=== PATIENT | male | born 1940 | race Caucasian/White ===

== ENCOUNTER 2017-11-21 05:58 | Inpatient (IN) | payer MEDICARE ==
[~2017-11-21] VITALS: Ht 195.6 cm; Wt 115.3 kg
[2017-11-21] VITALS (12 sets, daily range): BP systolic 132–162; BP diastolic 72–99; PULSE 52–82; RESP 16–20; TEMP 97.5–99.3; O2SAT 94–98
[2017-11-21] MEDS ORDERED: SODIUM CHLOR 0.9% 1000 ML INJ 1,000 ML IV ONE (06:03)
--- NOTE | 2017-11-21 06:15 | PD ---
HPI Chief Complaint: Stroke Alert Time Seen by Provider: 06:03 Travel History International Travel<30 days: No Contact w/Intl Traveler<30days: No Traveled to known affect area: No History of Present Illness HPI The patient is a 77 year old male who presents to the [facility] emergency department with a history of difficulty speaking that he first noticed at 1 AM. The patient reports that he lives at home alone. He reports that he felt uneasy throughout the entire night. He reports that he has been doing crosswords and attempting to speak to see if the symptoms will resolve. When they did not resolve he called ambulance services. The patient was brought in as a stroke alert. The patient arrives approximately 5 hours after the onset of symptoms. The patient reports that he has had a stroke in the past, one year ago. He reports that his symptoms completely resolved. He reports that he is on low-dose aspirin daily which he last took yesterday morning. He denies having any history of irregular heartbeat. On review of systems otherwise, the patient denies having any known recent fevers, cough, congestion , neck pain, chest pain, shortness of breath, abdominal pain, vomiting, diarrhea , urinary symptoms, one-sided weakness, vision changes, facial droop, or numbness or tingling to his extremities. The patient was brought in by ambulance services. The patient's blood sugar was noted to be 92 prior to arrival. The patient's pupils were reportedly unequal, however the patient reports having a history of this since childhood. [facility] Past Medical History Narrative Medical The patient's past medical history is significant for a prior cerebrovascular accident without any residual deficits, history of arthritis, depression, anxiety, hyperlipidemia, history of unequal pupils since childhood. Diminished Hearing: No Past Surgical History Narrative Surgical The patient's past surgical history is unremarkable. Social History Alcohol Use: No Tobacco Use: No Substance Use: No Allergies-Medications (Allergen,Severity, Reaction): Coded Allergies: bee venom protein (honey bee) (Verified Allergy, Unknown, 11/21/17) Reported Meds & Prescriptions Reported Meds & Active Scripts Active Reported Aspirin 81 Mg Chew 81 Mg CHEW DAILY Ativan (Lorazepam) 0.5 Mg Tab 0.5 Mg PO Q8H PRN Zoloft (Sertraline HCl) 50 Mg Tab 50 Mg PO DAILY Simvastatin 20 Mg Tab 20 Mg PO DAILY Buspirone (Buspirone HCl) 5 Mg Tab 5 Mg PO DAILY Gabapentin 800 Mg Tab 1,600 Mg PO HS Review of Systems Except as stated in HPI: all other systems reviewed are Neg General / Constitutional: No: Fever Eyes: No: Visual changes HENT: No: Headaches Cardiovascular: No: Chest Pain or Discomfort Respiratory: No: Shortness of Breath Gastrointestinal: No: Abdominal Pain Genitourinary: No: Dysuria Musculoskeletal: No: Pain Skin: No Rash Neurologic: Positive: Other (Difficulty with word finding ability), No: Weakness, Focal Abnormalities, Change in Mentation, Slurred Speech, Sensory Disturbance Psychiatric: No: Depression Endocrine: No: Polydipsia Hematologic/Lymphatic: No: Easy Bruising Physical Exam Narrative General: The patient is a well-developed well-nourished male in no acute distress. Head and Neck exam: Head is normocephalic atraumatic. Eyes: EOMI, pupils are equal on examination, left pupil larger than the right. The patient reports having a history of this since childhood. Nose: Midline septum with pink mucous membranes Mouth: Dentition unremarkable. Moist mucus membranes. Posterior oropharynx is not erythematous. No tonsillar hypertrophy. Uvula midline. Airway patent. Neck: No palpable lymphadenopathy. No nuchal rigidity. No thyromegaly. Cardiovascular: Regular rate and rhythm without murmurs, gallops, or rubs. No pulse deficit to the extremities on simultaneous auscultation and palpation of his radial artery. Lungs: Clear to auscultation bilaterally. No wheezes, rhonchi, or rales. Abdomen: Soft, without tenderness to palpation in all 4 quadrants of the abdomen. No guarding, rebound, or rigidity. Normal bowel sounds are audible. No tenderness on palpation of McBurney's point. Negative Mendoza sign. Extremities: No clubbing, cyanosis, or edema. 2+ pulses in all 4 extremities. No calf tenderness on palpation. Back: No spinous process tenderness to palpation. No costovertebral angle tenderness to palpation. Neurologic Exam: Cranial nerves 2-12 were intact on exam. Strength is 5/5 in all 4 extremities. No sensory deficits noted. No dysdiadochokinesis. Good finger to nose and Heel to guzman bilaterally. The patient has a mild aphasia with some difficulty with word finding ability regarding his history, however otherwise he is able to name various objects around the room. NIH score is 1. Skin Exam: No rash noted. Intact skin that is warm and dry. Data Data Last Documented VS Vital Signs Date Time Temp Pulse Resp B/P (MAP) Pulse Ox O2 Delivery O2 Flow Rate FiO2 11/21/17 06:31 98 Nasal Cannula 2.00 11/21/17 06:30 59 16 Orders Orders Activity Bed Rest (11/21/17 ) Electrocardiogram (11/21/17 ) I-Stat Profile (11/21/17 06:03) Prothrombin Time / Inr (Pt) (11/21/17 06:03) Act Partial Throm Time (Ptt) (11/21/17 06:03) Complete Blood Count With Diff (11/21/17 06:03) Fibrinogen (11/21/17 06:03) Creatine Kinase (Cpk) (11/21/17 06:03) Troponin I (11/21/17 06:03) Ua Includes Microscopic (11/21/17 06:03) Drug Screen, Random Urine (11/21/17 06:03) Type And Screen (11/21/17 06:03) Ct Brain W/O Iv Contrast(Rout) (11/21/17 ) Cta Brain W Iv Contrast W 3d (11/21/17 06:03) Cta Neck W Iv Contrast W 3d (11/21/17 06:03) Consult Neurology (11/21/17 ) Blood Glucose (11/21/17 06:03) Ecg Monitoring (11/21/17 06:03) Neuro Checks Q2HX12,Q4H (11/21/17 06:03) Nursing Bedside Swallow Assess .ONCE (11/21/17 06:03) Iv Access Insert/Monitor (11/21/17 06:03) NPO (11/21/17 06:03) Oximetry (11/21/17 06:03) Resp Oxygen Nc Stroke (11/21/17 ) Cath For Specimen (11/21/17 06:03) Sodium Chlor 0.9% 1000 Ml Inj (Ns 1000 M (11/21/17 06:03) (Hub Use Only)Inp Phy Cons/Ref (11/21/17 ) Iohexol 350 Inj (Omnipaque 350 Inj) (11/21/17 06:22) Aspirin Chew (Aspirin Chew) (11/21/17 06:45) CKMB (11/21/17 06:00) CKMB% (11/21/17 06:00) Admit Order (Ed Use Only) (11/21/17 06:52) Labs Laboratory Tests Test 11/21/17 06:00 11/21/17 06:10 11/21/17 06:40 Bedside Hemoglobin 13.6 G/DL Bedside Hematocrit 40.0 % Bedside Sodium 139 MMOL/L Bedside Potassium 4.8 MMOL/L Bedside Chloride 105 MMOL/L Bedside Blood Urea Nitrogen 16 MG/DL Bedside Creatinine 1.1 MG/DL Bedside Glucose 89 MG/DL Total Creatine Kinase 382 U/L Creatine Kinase MB 5.3 NG/ML Creatine Kinase MB % 1.4 % Troponin I LESS THAN 0.02 NG/ML Urine Color YELLOW Urine Turbidity CLEAR Urine pH 5.5 Urine Specific [place] 1.018 Urine Protein NEG mg/dL Urine Glucose (UA) NEG mg/dL Urine Ketones NEG mg/dL Urine Occult Blood NEG Urine Nitrite NEG Urine Bilirubin NEG Urine Urobilinogen LESS THAN 2.0 MG/DL Urine Leukocyte Esterase NEG Urine RBC 1 /hpf Urine WBC 1 /hpf Urine Hyaline Casts 4 /lpf Urine Mucus FEW /lpf Urine Opiates Screen NEG Urine Barbiturates Screen NEG Urine Amphetamines Screen NEG Urine Benzodiazepines Screen NEG Urine Cocaine Screen NEG Urine Cannabinoids Screen NEG White Blood Count 10.8 TH/MM3 Red Blood Count 3.76 MIL/MM3 Hemoglobin 12.3 GM/DL Hematocrit 35.8 % Mean Corpuscular Volume 95.3 FL Mean Corpuscular Hemoglobin 32.8 PG Mean Corpuscular Hemoglobin Concent 34.4 % Red Cell Distribution Width 13.9 % Platelet Count 247 TH/MM3 Mean Platelet Volume 8.2 FL Neutrophils (%) (Auto) 49.6 % Lymphocytes (%) (Auto) 30.3 % Monocytes (%) (Auto) 13.6 % Eosinophils (%) (Auto) 6.0 % Basophils (%) (Auto) 0.5 % Neutrophils # (Auto) 5.4 TH/MM3 Lymphocytes # (Auto) 3.3 TH/MM3 Monocytes # (Auto) 1.5 TH/MM3 Eosinophils # (Auto) 0.6 TH/MM3 Basophils # (Auto) 0.1 TH/MM3 CBC Comment DIFF FINAL Differential Comment Prothrombin Time 10.6 SEC Prothromb Time International Ratio 1.0 RATIO Activated Partial Thromboplast Time 24.3 SEC Fibrinogen 246 mg/dL Hemoglobin A1c 5.6 % MDM Medical Screen Exam Complete: Yes Emergency Medical Condition: Yes Medical Record Reviewed: Yes Differential Diagnosis Ischemic stroke, versus intracranial mass, versus encephalopathy, versus intracranial hemorrhage Narrative Course During the course of the patient's emergency department visit, the patient's history, examination, and differential diagnosis were reviewed with the patient. The patient was placed on a card grader with oximetry and frequent blood pressure monitoring. The patient had IV access obtained and blood work sent for analysis. A stroke alert was called on the patient prior to arrival. An i-STAT with creatinine was done on the patient. The patient was transported to CT after initial evaluation by me. Dr. Harmon the neurologist was called regarding this patient. The patient due to the time of onset his symptoms and his arrival time in the emergency department is not a candidate for TPA. He did recommend proceeding with CTA of the head and neck. EKG done on this patient on arrival back from CT shows a sinus rhythm, T waves are inverted in lead III, V1, no acute ST segment elevation. Wavy baseline which could in fact interpretation. The patient was initially provided normal saline at 70 mL/h. The patient was placed with the head of the bed flat. The patient's laboratory studies were reviewed and remarkable for a white count of 10.8, hemoglobin 12.3, platelets 247 with 13.6 monocytes, i-STAT with creatinine was unremarkable, creatinine 1.1, CPK 382 with an MB percent of 1.4, troponin I less than 0.02, fibrinogen 246, PT PTT within normal limits, urine drug screen is negative. Urinalysis is unremarkable. Radiology studies were reviewed and remarkable for a CT scan of the brain that shows apparent old areas of infarction involving the right cerebellar hemisphere , no acute hemorrhage or mass-effect. CTA of the neck shows bilateral calcific plaquing in the carotid bulbs right greater than the left with approximate 50% luminal narrowing on the right and less than 30% on the left. CTA of the brain shows an unremarkable examination. The patient's results were discussed with the patient, including the plan of care. I explained that further testing and/ or monitoring is indicated based on the patient's history, examination, and/ or laboratory findings. Therefore, I recommended admission for additional evaluation. The patient expressed understanding and was agreeable with this plan. The patient was admitted to the hospital in guarded condition and sent to a bed under the care of the [facility] service Critical Care Narrative Aggregate critical care time was 36 minutes. Time to perform other separately billable procedures was not included in the critical care time. My time did not include minutes spent treating any other patients simultaneously or on activities that did not directly contribute to the patient's treatment. The services I provided to this patient were to treat and/or prevent clinically significant deterioration that could result in: Progression of neurologic symptoms I provided critical care services requiring my management, as noted below: Chart data review, documentation time, medication orders and management, vital sign assessments/reviewing monitor data, ordering and reviewing lab tests, ordering and interpreting/reviewing x-rays and diagnostic studies, care of the patient and discussion of the patient with the admitting physicians. Stroke Alert NIHSS NIH Stroke Scale Result: 1 NIHSS Time Completed: 06:10 Physician Communication Physician Communication The patient's case including history, pertinent physical examination findings, and laboratory studies were discussed with Dr. Harmon. He recommends proceeding with CTA of the head and neck. The patient is 5 hours and 10 minutes out since onset of symptoms, therefore the patient does not meet criteria for TPA administration, however if he does have a blood clot that could be retrieved by interventional radiology he would meet the timeframe for this intervention to be done. After further discussion with Dr. Harmon, no significant blood clot for retrieval was identified on additional imaging. He agreed with the plan for the patient to receive aspirin and full dose p.o. The patient's case was discussed with Dr. Pinzon who did agree to admit the patient for further evaluation and treatment at this time. Diagnosis Diagnosis: Primary Impression: Expressive aphasia Additional Impression: Ischemic stroke Admitting Physician Requests: Rebekah Chowdhury MD Nov 21, 2017 06:15
--- NOTE | 2017-11-21 06:19 | RADRPT ---
EXAM DATE/TIME: 11/21/2017 06:07 [facility] COMPARISON: No previous studies available for comparison. INDICATIONS : Stroke Alert. Slurred speech. RADIATION DOSE: 39.88 CTDIvol (mGy) This report was called by Dr. Garcia to Dr. Puri at 0614 hours. MEDICAL HISTORY : Cerebrovascular disease. SURGICAL HISTORY : None. ENCOUNTER: Initial ACUITY: 1 day PAIN SCALE: 0/10 LOCATION: cranial TECHNIQUE: Multiple contiguous axial images were obtained of the head. Using automated exposure control and adj ustment of the mA and/or kV according to patient size, radiation dose was kept as low as reasonably a chievable to obtain optimal diagnostic quality images. DICOM format image data is available electro nically for review and comparison. FINDINGS: CEREBRUM: The ventricles are normal for age with diffuse mild to moderate atrophic change. No evidence of midli ne shift, mass lesion, hemorrhage or acute infarction. No extra-axial fluid collections are seen. POSTERIOR FOSSA: There are low-attenuation areas in the right cerebellar hemisphere with no mass effect. The 4th ventr icle is midline. The cerebellopontine angle is unremarkable. EXTRACRANIAL: The visualized portion of the orbits is intact. SKULL: The calvaria is intact. No evidence of skull fracture. CONCLUSION: 1. Apparent old areas of infarction involving the right cerebellar hemisphere. 2. No acute hemorrhage or mass effect. Paulie Garcia MD on November 21, 2017 at 6:12 Board Certified Radiologist. This report was verified electronically.
[2017-11-21] MEDS ORDERED: IOHEXOL 350 MG/ML 10 ML VIAL (for RAD DIAG) IVCONTRAST ONE (06:22)
--- NOTE | 2017-11-21 06:33 | RADRPT ---
EXAM DATE/TIME: 11/21/2017 06:07 [facility] COMPARISON: No previous studies available for comparison. INDICATIONS : Stroke Alert. Slurred speech. IV CONTRAST: 100 cc Omnipaque 350 (iohexol) IV ; Cumulative dose for multiple exams. RADIATION DOSE: 16.15 CTDIvol (mGy) ; Combined studies MEDICAL HISTORY : Cerebrovascular disease. SURGICAL HISTORY : None. ENCOUNTER: Initial ACUITY: 1 day PAIN SCALE: 0/10 LOCATION: cranial TECHNIQUE: Volumetric scanning was performed using a multi-row detector CT scanner. The data was post processed with a variety of visualization algorithms including full volume maximum intensity projection, multi -planar sliding thin slab reformation, curved planar reformation, and surface rendering techniques. Using automated exposure control and adjustment of the mA and/or kV according to patient size, radiat ion dose was kept as low as reasonably achievable to obtain optimal diagnostic quality images. DICO M format image data is available electronically for review and comparison. FINDINGS: There is excellent visualization of the major intracranial arteries out to the second-order branch ve ssels. There is no evidence for aneurysm, vessel truncation or stenosis, and no evidence for vascula r malformation. CONCLUSION: Unremarkable exam. Paulie Garcia MD on November 21, 2017 at 6:27 Board Certified Radiologist. This report was verified electronically.
[2017-11-21] MEDS ORDERED: GABA800T PO (06:34)
[2017-11-21] MEDS ORDERED: LORA-392 PO (06:40)
[2017-11-21] MEDS ORDERED: BUSP5TAB PO (06:40)
[2017-11-21] MEDS ORDERED: SIMV20TA PO (06:40)
[2017-11-21] MEDS ORDERED: ZOLO50TA PO (06:40)
[2017-11-21] MEDS ORDERED: ASPI-516 CHEW (06:41)
[2017-11-21] MEDS ORDERED: ASPIRIN 81 MG CHEW TAB CHEW ONE (06:45)
[2017-11-21 06:46] LABS: TROPONIN I LESS THAN 0.02 NG/ML (0.02-0.05)
--- NOTE | 2017-11-21 06:47 | RADRPT ---
EXAM DATE/TIME: 11/21/2017 06:07 [facility] COMPARISON: CTA BRAIN W 3D RECON, November 21, 2017, 6:07. INDICATIONS : Stroke Alert. Slurred speech. IV CONTRAST: 100 cc Omnipaque 350 (iohexol) IV ; Cumulative dose for multiple exams. RADIATION DOSE: 61.15 CTDIvol (mGy) ; Combined studies MEDICAL HISTORY : Cerebrovascular disease. SURGICAL HISTORY : None. ENCOUNTER: Initial ACUITY: 1 day PAIN SCALE: 0/10 LOCATION: Perianal Elevated flow velocities and ICA/CCA ratios have been found to correlate with increased degrees of vessel stenosis, calculated as percentage of diameter relative to a normal segment of distal ICA/CCA. TECHNIQUE: Volumetric scanning was performed using a multirow detector CT scanner. The data was post processed with a variety of visualization algorithms including full-volume maximum intensity projection, multip lanar sliding thin-slab reformation, curved-planar reformation, and surface-rendering techniques. Us ing automated exposure control and adjustment of the mA and/or kV according to patient size, radiatio n dose was kept as low as reasonably achievable to obtain optimal diagnostic quality images. DICOM f ormat image data is available electronically for review and comparison. FINDINGS: AORTIC ARCH: There is a three-vessel origin of the great vessels from the aorta. No evidence of ostial narrowing. RIGHT CAROTID: The common carotid artery is intact with mild plaque. There is moderate calcific plaquing in the gallagher tid bulb with approximately 50% luminal narrowing. The internal carotid artery lumen is smooth withou t stenosis. The external carotid artery is intact. LEFT CAROTID: The common carotid artery is intact. There is mild plaquing in the carotid bulb with less than 30% di ameter stenosis. The internal carotid artery lumen is smooth without stenosis. The external carotid artery is intact. VERTEBRALS: The vertebral arteries have a symmetric diameter. No stenotic lesions are seen. CONCLUSION: Bilateral calcific plaquing in the carotid bulbs right greater than left with approximate 50% luminal narrowing on the right less than 30% on the left. Paulie Garcia MD on November 21, 2017 at 6:39 Board Certified Radiologist. This report was verified electronically.
[2017-11-21] MEDS ORDERED: SODIUM CHLORIDE 0.9% FLUSH 10 ML FLUSH IV FLUSH PRN ×2 (07:00→08:45)
[2017-11-21] MEDS ORDERED: GLUCAGON 1 MG/ML VIAL OTHER PRN ×2 (07:00→08:45)
[2017-11-21] MEDS ORDERED: DEXTROSE 50% IN WATER 50 ML VIAL(D50) IV PUSH PRN ×2 (07:00→08:45)
[2017-11-21 07:05] LABS: AUTOMATED NEUTROPHIL # 5.4 TH/MM3 (1.8-7.7); BASOPHIL # 0.1 TH/MM3 (0-0.2); BASOPHIL % 0.5 % (0.0-2.0); EOSINOPHIL # 0.6 TH/MM3 (0-0.4); HEMATOCRIT 35.8 % (39.0-51.0); HEMOGLOBIN 12.3 GM/DL (13.0-17.0); LYMPH % 30.3 % (9.0-44.0); LYMPHOCYTE # 3.3 TH/MM3 (1.0-4.8); MEAN CELL VOLUME 95.3 FL (80.0-100.0); MEAN CORPUSCULAR HEMOGLOBIN 32.8 PG (27.0-34.0); MEAN CORPUSCULAR HGB CONC 34.4 % (32.0-36.0); MEAN PLATELET VOLUME 8.2 FL (7.0-11.0); MONO % 13.6 % (0.0-8.0); MONOCYTE # 1.5 TH/MM3 (0-0.9); NEUT % 49.6 % (16.0-70.0); PLATELET COUNT 247 TH/MM3 (150-450); RED BLOOD COUNT 3.76 MIL/MM3 (4.50-5.90); RED CELL DISTRIBUTION WIDTH 13.9 % (11.6-17.2); WHITE BLOOD COUNT 10.8 TH/MM3 (4.0-11.0)
[2017-11-21 07:12] LABS: PROTHROMBIN TIME - PATIENT 10.6 SEC (9.8-11.6)
[2017-11-21 07:16] LABS: BILIRUBIN, URINE NEG (NEG); BLOOD, URINE NEG (NEG); GLUCOSE,URINE NEG (NEG); HYALINE CAST, URINE 4 /lpf (RARE); KETONE, URINE NEG (NEG); MUCUS URINE FEW /lpf (OCC); NITRITE,URINE NEG (NEG); PH, URINE 5.5 (5.0-8.5); URINE COLOR YELLOW (YELLW/STRAW); URINE LEUKOCYTE ESTERASE NEG (NEG)
[2017-11-21] MEDS ORDERED: SODIUM CHLOR 0.9% 1000 ML INJ 1,000 ML IV SCH (08:00)
[2017-11-21] MEDS ORDERED: INSULIN ASPART SUPPLEMENTAL SCALE SQ SCH (08:00)
[2017-11-21] MEDS: HEPARIN SODIUM - SQ 10,000 UNITS/ML VIAL SQ SCH ×2 (08:44→21:32)
--- NOTE | 2017-11-21 08:58 | MB ---
cc: BRETT DE SANTIAGO M.D., TARA D. M.D. DATE OF CONSULTATION 11/21/2017 REASON FOR CONSULTATION Stroke Alert. HISTORY OF PRESENT ILLNESS Mr. Reza is a 77-year-old man who has a history of previous stroke about a year ago. He was in his usual state of health until 1:00 a.m. this morning when he suddenly had difficulty speaking, difficulty getting words out. He felt uneasy the whole night. He was awake and these symptoms happened and did not wake up with the symptoms. He tried to do crossword puzzles to see if his symptoms would resolve. They did not resolve so he called 911 and a Stroke Alert was called. The patient arrived in the ER 5 hours after the onset of symptoms. At this time I spoke with Dr. Puri. The patient had difficulty with an aphasia, difficulty expressing words but no focal motor deficits, no cranial nerve deficits, no facial droop, etc. He was outside the window for TPA given the time frame, however, we felt that it was appropriate to proceed with evaluation for possible large vessel occlusion for the possibility of intra-arterial thrombectomy if we were to see a large vessel occlusion since the patient was aphasic. Therefore, he had a CT scan of the brain which showed nothing acute but old areas of infarction in the right cerebellar hemisphere, no hemorrhage. He further underwent CT angiography of the head which was within normal limits with no evidence of any large vessel occlusion. In addition, he had CT angiography of the neck showing mild calcific plaque in the carotids about 50% on the right, stenosis 30% on the left, but certainly no hemodynamically significant stenosis. The patient reports at the present time that he is having improvement in his symptoms although not back to normal. PAST MEDICAL HISTORY He has a history of a stroke about a year ago. MEDICATIONS Medications at home: 1. Aspirin 81 mg daily. 2. Ativan as needed. 3. Zoloft 50 mg daily. 4. Simvastatin 20 mg daily. 5. BuSpar 5 mg daily. 6. Gabapentin 800 mg; takes two of these at night. ALLERGIES BEE VENOM. NEUROLOGICAL EXAMINATION VITAL SIGNS: Blood pressure is 149/89, pulse 67 and regular, respiratory rate 16. HIGHER CORTICAL FUNCTIONS: The patient is alert. He has with appears to be an expressive aphasia. He is able to follow commands well. He can get some words out but does have difficulty and there is significant hesitancy. CRANIAL NERVES: Normal. There is no facial droop. Pupils equal and reactive. Extraocular movements intact. MOTOR: On motor examination he has 5/5 strength of all groups in both upper and lower extremities. There is no drift. Fine motor skills within normal limits. Reflexes symmetric. There is no Babinski sign present. IMAGING CT of the brain as noted above is normal. CTA of the brain is also normal. CT angiography of the neck reveals nonsignificant carotid stenosis bilaterally. LABORATORY White count is 10,800, hemoglobin 12.3, hematocrit 35.8%, platelet count 247,000. Sodium 139, potassium 4.8, chloride 105, BUN 16, creatinine 1.1, glucose 89. CPK 382. Troponin less than 0.02. PT 10.6, INR 1, APTT 24.3. Tox screen negative. Urinalysis: pH 5.5, specific gravity 1.018, 1 wbc, 1 rbc. EKG EKG reveals normal sinus rhythm. IMPRESSION Acute stroke with expressive aphasia which seems to be improving. As noted above the patient was not a candidate for IV TPA as he was beyond the 4-1/2 hour window upon presentation. He was evaluated further for possible intra-arterial therapy; however, CT angiography did not reveal any significant large vessel occlusion amenable to intra-arterial therapy. PLAN/RECOMMENDATIONS At the present time would recommend continuing full-dose aspirin at 325 mg daily. Will maintain head of bed flat status for the next 12 hours. IV fluids. Monitor neurologic status carefully. Will also obtain further evaluation with an MRI and MRA of the brain and echocardiogram. Monitor cardiac telemetry to be sure there is no atrial fibrillation. Will also check a lipid panel. I also recommend a rehab medicine consult. Thank you for asking me to see this nice patient. Total time aggregate spent in consultation greater then 70 minutes. MD GERRI Dawkins/CHRISTOS /8:26 AM /8:38 AM
[2017-11-21] MEDS ORDERED: SODIUM CHLORIDE 0.9% FLUSH 10 ML FLUSH IV FLUSH SCH (09:00)
[2017-11-21] MEDS: SODIUM CHLOR 0.9% 1000 ML INJ 1,000 ML IV SCH ×2 (09:00→21:32)
[2017-11-21] MEDS: SODIUM CHLORIDE 0.9% FLUSH 10 ML FLUSH IV FLUSH SCH ×2 (09:00→21:00)
--- NOTE | 2017-11-21 09:23 | RADRPT ---
EXAM DATE/TIME: 11/21/2017 08:07 [facility] COMPARISON: CTA CAROTID ARTERIES W 3D RECON, November 21, 2017, 6:07. INDICATIONS : Cerebrovascular accident. MEDICAL HISTORY : CVA. SURGICAL HISTORY : None. ENCOUNTER: Initial ACUITY: 1 day PAIN SCORE: 10 LOCATION: Bilateral neck PEAK SYSTOLIC VELOCITIES (cm/sec): ICA/CCA RATIO: Right: 3.8 Left: 1.1 ICA: Right: 192 Left: 80 CCA: Right: 50 Left: 76 ECA: Right: 81 Left: 67 VERTEBRAL: Right: 61 antegrade Left: 37 antegrade Elevated flow velocities and ICA/CCA ratios have been found to correlate with increased degrees of vessel stenosis, calculated as percentage of diameter relative to a normal segment of distal ICA/CCA FINDINGS: RIGHT CAROTID: There is moderate atherosclerotic plaque in the right. There is elevation of the peak systolic veloci ty. LEFT CAROTID: No significant stenosis is visualized. The waveforms are within normal limits. VERTEBRAL ARTERIES: Antegrade flow is seen in both vertebral arteries. MISCELLANEOUS: None. CONCLUSION: 1. Left carotid: 2. No hemodynamically significant carotid artery stenosis identified. 3. 4. Right carotid: 5. There is elevation of the peak systolic velocity ratio however, the patient underwent CT angiograp hy of the carotids 11/21/17 secondary to the CVA. This demonstrates only mild stenosis at the origin o f the right internal carotid. This is estimated to be in the range of 20-30% by NASCET criteria. Ther e is a small amount of soft plaque present as well. Antonio Rhodes MD on November 21, 2017 at 9:19 Board Certified Radiologist. This report was verified electronically.
--- NOTE | 2017-11-21 11:05 | RADRPT ---
EXAM DATE/TIME: 11/21/2017 10:15 [facility] COMPARISON: CTA CAROTID ARTERIES W 3D RECON, November 21, 2017, 6:07. INDICATIONS : Aphasia. MEDICAL HISTORY : Hypercholesterolemia. Stroke SURGICAL HISTORY : Splenectomy. lt ankle ENCOUNTER: Initial ACUITY: 1 day PAIN SCORE: 0/10 LOCATION: cranial Please note a normal MRA of the brain does not entirely exclude the possibility of a small aneurysm, nor the possibility of distal intracranial vessel disease. TECHNIQUE: 3D time of flight MRA was performed. Source images, multiplanar STS MIP, and 3D volume MIP reconstru ctions were reviewed. FINDINGS: Anterior circulation: Distal intracranial internal carotid arteries are patent with flow extending to the middle and anteri or cerebral arteries. There is no evidence for aneurysm, vessel truncation or stenosis, and no eviden ce for vascular malformation. Posterior circulation: Asymmetric distal vertebral arteries. This may be due to termination of the left vertebral artery in PICA although this is inadequately visualized/imaged. There is no evidence for aneurysm, vessel trunc ation or stenosis. CONCLUSION: 1. No evidence for significant hemodynamic flow limiting stenosis or large vessel occlusion. 2. Asymmetrical distal vertebral arteries with dominant right vertebral artery, as above. Matteo Silva MD on November 21, 2017 at 10:53 Board Certified Radiologist. This report was verified electronically.
--- NOTE | 2017-11-21 11:21 | RADRPT ---
EXAM DATE/TIME: 11/21/2017 10:15 [facility] COMPARISON: CT BRAIN W/O CONTRAST, November 21, 2017, 6:07. INDICATIONS : Aphasia. MEDICAL HISTORY : Hypercholesterolemia. Stroke SURGICAL HISTORY : Splenectomy. Lt ankle ENCOUNTER: Initial ACUITY: 1 day PAIN SCORE: 0/10 LOCATION: cranial TECHNIQUE: Multiplanar, multisequence MRI of the brain was performed without contrast. FINDINGS: There are several areas of subcortical restricted diffusion in the left parietal lobe extending from posterior sylvian to watershed zone of the mid and high convexity. No evidence of blood products. N o significant cerebral edema about the areas of restricted diffusion. There is cortical T1 and T2 pr olongation in the inferior left occipital cortex adjacent to the tentorium, characteristic of an old infarction. No restricted diffusion in the right supratentorial brain. The ventricles are mildly pr ominent, appropriate for age. The posterior fossa demonstrates an old infarction with atrophy involving the inferior right cerebell um. The 4th ventricle is normal in size. The brainstem is intact. The visualized portion of the orbits and paranasal sinuses is intact. CONCLUSION: 1. Acute nonhemorrhagic subcortical infarctions posterior left temporal lobe. 2. Old cortical infarction inferior right parasagittal occipital lobe. 3. Old segmental infarction inferior right cerebellar hemisphere. Sanchez Vo MD on November 21, 2017 at 11:14 Board Certified Radiologist. This report was verified electronically.
[2017-11-21] MEDS: INSULIN ASPART SUPPLEMENTAL SCALE SQ SCH ×3 (12:00→20:56)
--- NOTE | 2017-11-21 16:42 | HHI.HP ---
HPI Service [facility] Hospitalists Primary Care Physician Unknown Admission Diagnosis Stroke alert Diagnoses: Chief Complaint: Slurred speech Travel History International Travel<30 Days: No Contact w/Intl Traveler <30 Da: No Traveled to Known Affected Are: No History of Present Illness The patient is a 77 year old male who presents to the [facility] emergency department with a history of difficulty speaking that he first noticed at 1 AM. The patient reports that he lives at home alone. He reports that he felt uneasy throughout the entire night. He reports that he has been doing crosswords and attempting to speak to see if the symptoms will resolve. When they did not resolve he called ambulance services. The patient was brought in as a stroke alert. The patient arrives approximately 5 hours after the onset of symptoms. The patient reports that he has had a stroke in the past, one year ago. He reports that his symptoms completely resolved. He reports that he is on low-dose aspirin daily which he last took yesterday morning. He denies having any history of irregular heartbeat. On review of systems otherwise, the patient denies having any known recent fevers, cough, congestion , neck pain, chest pain, shortness of breath, abdominal pain, vomiting, diarrhea , urinary symptoms, one-sided weakness, vision changes, facial droop, or numbness or tingling to his extremities. The patient was brought in by ambulance services. The patient's blood sugar was noted to be 92 prior to arrival. The patient's pupils were reportedly unequal, however the patient reports having a history of this since childhood. Review of Systems Except as stated in HPI: all other systems reviewed are Neg Past Family Social History Past Medical History Prior cerebrovascular accident without any residual deficits, history of arthritis, depression, anxiety, hyperlipidemia. Past Surgical History Splenectomy Left lower lobe lung lobectomy Cancer removed from right side of his face Right ankle surgery with steal plate Reported Medications Reported Meds & Active Scripts Active Reported Aspirin 81 Mg Chew 81 Mg CHEW DAILY Ativan (Lorazepam) 0.5 Mg Tab 0.5 Mg PO Q8H PRN Zoloft (Sertraline HCl) 50 Mg Tab 50 Mg PO DAILY Simvastatin 20 Mg Tab 20 Mg PO DAILY Buspirone (Buspirone HCl) 5 Mg Tab 5 Mg PO DAILY Gabapentin 800 Mg Tab 1,600 Mg PO HS Allergies: Coded Allergies: bee venom protein (honey bee) (Verified Allergy, Unknown, 11/21/17) Family History Mother with abdominal adhesions and multiple surgical history Father with stroke Social History Quit smoking 20 years ago used to smoke 1-2 packs a day for 10 years. No history or current illicit drug use. No alcohol use. Physical Exam Vital Signs Vital Signs Date Time Temp Pulse Resp B/P (MAP) Pulse Ox O2 Delivery O2 Flow Rate FiO2 11/21/17 15:36 99.3 62 20 158/99 (118) 97 11/21/17 11:56 97.5 57 20 162/86 (111) 96 11/21/17 10:47 60 16 150/72 (98) 99 11/21/17 08:30 58 16 145/72 (96) 97 Room Air 11/21/17 07:04 98 Nasal Cannula 2.00 11/21/17 06:31 98 Nasal Cannula 2.00 11/21/17 06:31 98 Nasal Cannula 11/21/17 06:30 59 16 140/81 (100) 98 Nasal Cannula 2.00 11/21/17 06:07 95 Nasal Cannula 2.00 11/21/17 06:07 52 16 132/81 (98) 98 Nasal Cannula 2.00 11/21/17 06:07 95 2.00 11/21/17 06:00 67 16 149/89 (109) 98 Nasal Cannula 2.00 Physical Exam GENERAL: This is a well-nourished, well-developed patient, in no apparent distress. SKIN: No rashes, ecchymoses or lesions. Cool and dry. HEAD: Atraumatic. Normocephalic. No temporal or scalp tenderness. EYES: Pupils equal round and reactive. Extraocular motions intact. No scleral icterus. No injection or drainage. ENT: Nose without bleeding, purulent drainage or septal hematoma. Throat without erythema, tonsillar hypertrophy or exudate. Uvula midline. Airway patent. NECK: Trachea midline. No JVD or lymphadenopathy. Supple, nontender, no meningeal signs. CARDIOVASCULAR: Regular rate and rhythm without murmurs, gallops, or rubs. RESPIRATORY: Clear to auscultation. Breath sounds equal bilaterally. No wheezes , rales, or rhonchi. GASTROINTESTINAL: Abdomen soft, non-tender, nondistended. No hepato-splenomegaly , or palpable masses. No guarding. MUSCULOSKELETAL: Extremities without clubbing, cyanosis, or edema. No joint tenderness, effusion, or edema noted. No calf tenderness. Negative Homans sign bilaterally. NEUROLOGICAL: Awake and alert. Cranial nerves II through XII intact. Motor and sensory grossly within normal limits. Five out of 5 muscle strength in all muscle groups. Slurred speech Laboratory Laboratory Tests Test 11/21/17 06:00 11/21/17 06:10 11/21/17 06:40 Bedside Hemoglobin 13.6 Bedside Hematocrit 40.0 Bedside Sodium 139 Bedside Potassium 4.8 Bedside Chloride 105 Bedside Blood Urea Nitrogen 16 Bedside Creatinine 1.1 Bedside Glucose 89 Total Creatine Kinase 382 Creatine Kinase MB 5.3 Creatine Kinase MB % 1.4 Troponin I LESS THAN 0.02 Urine Color YELLOW Urine Turbidity CLEAR Urine pH 5.5 Urine Specific [place] 1.018 Urine Protein NEG Urine Glucose (UA) NEG Urine Ketones NEG Urine Occult Blood NEG Urine Nitrite NEG Urine Bilirubin NEG Urine Urobilinogen LESS THAN 2.0 Urine Leukocyte Esterase NEG Urine RBC 1 Urine WBC 1 Urine Hyaline Casts 4 Urine Mucus FEW Urine Opiates Screen NEG Urine Barbiturates Screen NEG Urine Amphetamines Screen NEG Urine Benzodiazepines Screen NEG Urine Cocaine Screen NEG Urine Cannabinoids Screen NEG White Blood Count 10.8 Red Blood Count 3.76 Hemoglobin 12.3 Hematocrit 35.8 Mean Corpuscular Volume 95.3 Mean Corpuscular Hemoglobin 32.8 Mean Corpuscular Hemoglobin Concent 34.4 Red Cell Distribution Width 13.9 Platelet Count 247 Mean Platelet Volume 8.2 Neutrophils (%) (Auto) 49.6 Lymphocytes (%) (Auto) 30.3 Monocytes (%) (Auto) 13.6 Eosinophils (%) (Auto) 6.0 Basophils (%) (Auto) 0.5 Neutrophils # (Auto) 5.4 Lymphocytes # (Auto) 3.3 Monocytes # (Auto) 1.5 Eosinophils # (Auto) 0.6 Basophils # (Auto) 0.1 CBC Comment DIFF FINAL Differential Comment Prothrombin Time 10.6 Prothromb Time International Ratio 1.0 Activated Partial Thromboplast Time 24.3 Fibrinogen 246 Result Diagram: 11/21/17 0640 Imaging Last Impressions Neck CTA 11/21/17 Signed Impressions: Service Date/Time: Tuesday, November 21, 2017 06:07 - CONCLUSION: Bilateral calcific plaquing in the carotid bulbs right greater than left with approximate 50%% luminal narrowing on the right less than 30%% on the left. Paulie Garcia MD Head CTA 11/21/1703 Signed Impressions: Service Date/Time: Tuesday, November 21, 2017 06:07 - CONCLUSION: Unremarkable exam. Paulie Garcia MD Head Magnetic Resonance Angiography 11/21/17 Signed Impressions: Service Date/Time: Tuesday, November 21, 2017 10:15 - CONCLUSION: 1. No evidence for significant hemodynamic flow limiting stenosis or large vessel occlusion. 2. Asymmetrical distal vertebral arteries with dominant right vertebral artery, as above. Matteo Silva MD Head CT 11/21/17 Signed Impressions: Service Date/Time: Tuesday, November 21, 2017 06:07 - CONCLUSION: 1. Apparent old areas of infarction involving the right cerebellar hemisphere. 2. No acute hemorrhage or mass effect. Paulie Garcia MD Carotid Artery Ultrasound 11/21/17 Signed Impressions: Service Date/Time: Tuesday, November 21, 2017 08:07 - CONCLUSION: 1. Left carotid: 2. No hemodynamically significant carotid artery stenosis identified. 3. 4. Right carotid: 5. There is elevation of the peak systolic velocity ratio however, the patient underwent CT angiography of the carotids 11/21/17 secondary to the CVA. This demonstrates only mild stenosis at the origin of the right internal carotid. This is estimated to be in the range of 20-30%% by NASCET criteria. There is a small amount of soft plaque present as well. Antonio Rhodes MD Brain MRI 11/21/17 0000 Signed Impressions: Service Date/Time: Tuesday, November 21, 2017 10:15 - CONCLUSION: 1. Acute nonhemorrhagic subcortical infarctions posterior left temporal lobe. 2. Old cortical infarction inferior right parasagittal occipital lobe. 3. Old segmental infarction inferior right cerebellar hemisphere. Sanchez Vo MD Caprini VTE Risk Assessment Caprini VTE Risk Assessment: Mod/High Risk (score >= 2) Caprini Risk Assessment Model Point Value = 1 Point Value = 2 Point Value = 3 Point Value = 5 Age 41-60 Minor surgery BMI > 25 kg/m2 Swollen legs Varicose veins or History of unexplained or recurrent spontaneous Oral contraceptives or hormone replacement Sepsis (< 1 month) Serious lung disease, including pneumonia (< 1 month) Abnormal pulmonary function Acute myocardial infarction Congestive heart failure (< 1 month) History of inflammatory bowel disease Medical patient at bed rest Age 61-74 Arthroscopic surgery Major open surgery (> 45 min) Laparoscopic surgery (> 45 min) Malignancy Confined to bed (> 72 hours) Immobilizing plaster cast Central venous access Age >= 75 History of VTE Family history of VTE Factor V Leiden Prothrombin [id number] Lupus anticoagulant Anticardiolipin antibodies Elevated serum homocysteine Heparin-induced thrombocytopenia Other congenital or acquired thrombophilia Stroke (< 1 month) Elective arthroplasty Hip, pelvis, or leg fracture Acute spinal cord injury (< 1 month) Prophylaxis Regimen Total Risk Factor Score Risk Level Prophylaxis Regimen 0-1 Low Early ambulation 2 Moderate Order ONE of the following: *Sequential Compression Device (SCD) *Heparin 5000 units SQ BID 3-4 Higher Order ONE of the following medications: *Heparin 5000 units SQ TID *Enoxaparin/Lovenox 40 mg SQ daily (WT < 150 kg, CrCl > 30 mL/min) *Enoxaparin/Lovenox 30 mg SQ daily (WT < 150 kg, CrCl > 10-29 mL/min) *Enoxaparin/Lovenox 30 mg SQ BID (WT < 150 kg, CrCl > 30 mL/min) AND/OR *Sequential Compression Device (SCD) 5 or more Highest Order ONE of the following medications: *Heparin 5000 units SQ TID (Preferred with Epidurals) *Enoxaparin/Lovenox 40 mg SQ daily (WT < 150 kg, CrCl > 30 mL/min) *Enoxaparin/Lovenox 30 mg SQ daily (WT < 150 kg, CrCl > 10-29 mL/min) *Enoxaparin/Lovenox 30 mg SQ BID (WT < 150 kg, CrCl > 30 mL/min) AND *Sequential Compression Device (SCD) Assessment and Plan Assessment and Plan 77 male with Acute stroke with expressive aphasia 2/2 acute nonhemorrhagic subcortical infarction posterior left temporal lobe CT revealed no hemorrhagic stroke. CTA neck reviewed reveals not significant bilateral carotid stenosis. MRI and MRA of the brain reviewed. Patient with acute nonhemorrhagic subcortical infarction posterior left temporal lobe. Also old cortical infarct inferior right parasagittal occipital lobe. An old segmental infarct inferior right cerebral hemisphere. Patient is not a candidate for IV TPA as he is beyond the window upon presentation Continue aspirin 325 mg Head flat IV fluids Neurochecks Oxygen supplement keep oxygen supplement oxygen saturation more than 94% Consult PT/OT/ST Consult neurology following appreciated recommendations Dr. Harmon has seen the patient Stroke navigator Allow permissive hypertension Chronic medical problems continue home medications. 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 In the case of services not specified as inpatient-only, they are appropriately provided as inpatient services in accordance with the 2-midnight benchmark. Estimated LOS (days): 3 days is the estimated time the patient will need to remain in the hospital, assuming treatment plan goals are met and no additional complications. Post-Hospital Plan: Home Diya Thakur MD Nov 21, 2017 16:42
[2017-11-21 17:14] LABS: HEMOGLOBIN A1C 5.6 % (4.3-6.0)
--- NOTE | 2017-11-21 22:54 | EKG ---
Date Performed: 11/21/2017 Time Performed: 06:28:31 PTAGE: 77 years EKG: Sinus rhythm WITH SINUS ARRHYTHMIA WITH FIRST DEGREE AV BLOCK LOW QRS VOLTAGE IN PRECORDIAL LEADS ABNORMAL ECG NO PREVIOUS TRACING DOCTOR: Milagros Graham Interpretating Date/Time 11/21/2017 22:49:32
[2017-11-22] VITALS (9 sets, daily range): BP systolic 119–146; BP diastolic 66–80; PULSE 63–75; RESP 16–20; TEMP 97.9–99.4; O2SAT 94–97
[2017-11-22] MEDS ORDERED: GABAPENTIN 400 MG CAP PO ONE (01:00)
[2017-11-22 05:34] LABS: HEMATOCRIT 39.6 % (39.0-51.0); HEMOGLOBIN 13.8 GM/DL (13.0-17.0); MEAN CORPUSCULAR HEMOGLOBIN 33.2 PG (27.0-34.0); MEAN PLATELET VOLUME 8.8 FL (7.0-11.0); PLATELET COUNT 252 TH/MM3 (150-450); RED BLOOD COUNT 4.16 MIL/MM3 (4.50-5.90); RED CELL DISTRIBUTION WIDTH 13.7 % (11.6-17.2)
[2017-11-22 06:04] LABS: BICARBONATE 27.6 MEQ/L (21.0-32.0); CALCIUM 8.5 MG/DL (8.5-10.1); CREATININE 0.89 MG/DL (0.60-1.30)
[2017-11-22 06:08] LABS: CHOLESTEROL/ HDL RATIO 3.56 RATIO; HDL CHOLESTEROL 53.6 MG/DL (40.0-60.0)
[2017-11-22] MEDS: INSULIN ASPART SUPPLEMENTAL SCALE SQ SCH ×4 (08:00→20:40)
[2017-11-22] MEDS: ASPIRIN 325 MG TAB PO SCH (08:37)
[2017-11-22] MEDS: HEPARIN SODIUM - SQ 10,000 UNITS/ML VIAL SQ SCH ×2 (08:37→20:41)
[2017-11-22] MEDS: SODIUM CHLORIDE 0.9% FLUSH 10 ML FLUSH IV FLUSH SCH ×2 (09:00→20:41)
[2017-11-22 11:41] LABS: BANDS 3 % (0-6); BASOPHILS 4 % (0-2); LYMPHOCYTES 43 % (9-44); MONOCYTES 5 % (0-8); NEUTROPHIL # MANUAL DIFF 4.6 TH/MM3 (1.8-7.7); POLYS (SEG NEUTROPHILS) 39 % (16-70)
[2017-11-22 11:42] LABS: SMUDGE CELLS PRESENT PRESENT
--- NOTE | 2017-11-22 11:43 | HHI.PR ---
Subjective Remarks Which is improving. Steady gait. Motor strength is fairly good. No new motor or sensory deficit. Denies chest pain or shortness of breath. Had a bowel movement, no nausea vomiting diarrhea. Denies fever or chills. Objective Vitals Vital Signs Date Time Temp Pulse Resp B/P (MAP) Pulse Ox O2 Delivery O2 Flow Rate FiO2 11/22/17 08:00 98.3 66 20 134/66 (88) 11/22/17 08:00 66 11/22/17 05:56 Nasal Cannula 2.00 11/22/17 05:14 98.1 74 18 131/68 (89) 97 11/22/17 03:46 63 11/22/17 01:10 98.1 65 18 146/74 (98) 97 11/22/17 00:01 63 11/21/17 20:59 98.3 82 18 161/84 (109) 94 11/21/17 20:04 66 11/21/17 19:31 70 11/21/17 15:36 99.3 62 20 158/99 (118) 97 11/21/17 12:51 57 11/21/17 11:56 97.5 57 20 162/86 (111) 96 I/O 11/21/17 11/21/17 11/21/17 11/22/17 11/22/17 11/22/17 07:00 15:00 23:00 07:00 15:00 23:00 Intake Total 700 ml 1000 ml Output Total 200 ml 1000 ml Balance 500 ml 0 ml IV Total 700 ml 1000 ml Output Urine Total 200 ml 1000 ml # Bowel Movements 1 Result Diagram: 11/22/17 0500 11/22/17 0500 Imaging Last Impressions Neck CTA 11/21/17602 Signed Impressions: Service Date/Time: Tuesday, November 21, 2017 06:07 - CONCLUSION: Bilateral calcific plaquing in the carotid bulbs right greater than left with approximate 50%% luminal narrowing on the right less than 30%% on the left. Paulie Garcia MD Head CTA 11/21/17602 Signed Impressions: Service Date/Time: Tuesday, November 21, 2017 06:07 - CONCLUSION: Unremarkable exam. Paulie Garcia MD Head Magnetic Resonance Angiography 11/21/17 0000 Signed Impressions: Service Date/Time: Tuesday, November 21, 2017 10:15 - CONCLUSION: 1. No evidence for significant hemodynamic flow limiting stenosis or large vessel occlusion. 2. Asymmetrical distal vertebral arteries with dominant right vertebral artery, as above. Matteo Silva MD Head CT 11/21/17 0000 Signed Impressions: Service Date/Time: Tuesday, November 21, 2017 06:07 - CONCLUSION: 1. Apparent old areas of infarction involving the right cerebellar hemisphere. 2. No acute hemorrhage or mass effect. Paulie Garcia MD Carotid Artery Ultrasound 11/21/17 0000 Signed Impressions: Service Date/Time: Tuesday, November 21, 2017 08:07 - CONCLUSION: 1. Left carotid: 2. No hemodynamically significant carotid artery stenosis identified. 3. 4. Right carotid: 5. There is elevation of the peak systolic velocity ratio however, the patient underwent CT angiography of the carotids 11/21/17 secondary to the CVA. This demonstrates only mild stenosis at the origin of the right internal carotid. This is estimated to be in the range of 20-30%% by NASCET criteria. There is a small amount of soft plaque present as well. Antonio Rhodes MD Brain MRI 11/21/17 0000 Signed Impressions: Service Date/Time: Tuesday, November 21, 2017 10:15 - CONCLUSION: 1. Acute nonhemorrhagic subcortical infarctions posterior left temporal lobe. 2. Old cortical infarction inferior right parasagittal occipital lobe. 3. Old segmental infarction inferior right cerebellar hemisphere. Sanchez Vo MD Objective Remarks GENERAL: This is a well-nourished, well-developed patient, in no apparent distress. SKIN: No rashes, ecchymoses or lesions. Cool and dry. HEAD: Atraumatic. Normocephalic. No temporal or scalp tenderness. EYES: Pupils equal round and reactive. Extraocular motions intact. No scleral icterus. No injection or drainage. ENT: Nose without bleeding, purulent drainage or septal hematoma. Throat without erythema, tonsillar hypertrophy or exudate. Uvula midline. Airway patent. NECK: Trachea midline. No JVD or lymphadenopathy. Supple, nontender, no meningeal signs. CARDIOVASCULAR: Regular rate and rhythm without murmurs, gallops, or rubs. RESPIRATORY: Clear to auscultation. Breath sounds equal bilaterally. No wheezes , rales, or rhonchi. GASTROINTESTINAL: Abdomen soft, non-tender, nondistended. No hepato-splenomegaly , or palpable masses. No guarding. MUSCULOSKELETAL: Extremities without clubbing, cyanosis, or edema. No joint tenderness, effusion, or edema noted. No calf tenderness. Negative Homans sign bilaterally. NEUROLOGICAL: Awake and alert. Cranial nerves II through XII intact. Motor and sensory grossly within normal limits. Five out of 5 muscle strength in all muscle groups. Unsteady gate. Slurred speech however improving. A/P Assessment and Plan 77 male with Acute stroke with expressive aphasia 2/2 acute nonhemorrhagic subcortical infarction posterior left temporal lobe CT revealed no hemorrhagic stroke. CTA neck reviewed reveals not significant bilateral carotid stenosis. MRI and MRA of the brain reviewed. Patient with acute nonhemorrhagic subcortical infarction posterior left temporal lobe. Also old cortical infarct inferior right parasagittal occipital lobe. An old segmental infarct inferior right cerebral hemisphere. Patient is not a candidate for IV TPA as he is beyond the window upon presentation Continue aspirin 325 mg IV fluids Neurochecks Oxygen supplement keep oxygen supplement oxygen saturation more than 94% Consult PT/OT/ST Consult neurology following appreciated recommendations Dr. 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 DVT prophylaxis SCDs//heparin subcu Discussed Condition With Patient, nurse Diya Thakur MD Nov 22, 2017 11:43
[2017-11-22] MEDS: SODIUM CHLOR 0.9% 1000 ML INJ 1,000 ML IV SCH (12:02)
--- NOTE | 2017-11-22 21:41 | HHI.PR ---
Review/Management Diagnosis add statin,continue asa follow up echo monitor cardiac telemetry--r/o atrial fibrillation Diagnosis/Plan: Subjective Subjective Comments No acute events reported He feels speech is improving Active Medications Current Medications Medications (Trade) Dose Ordered Sig/Janay Route Start Time Stop Time Status Last Admin (Heparin Inj) 5,000 units Q12H SQ 11/21/17 08:00 11/22/17 20:41 (NS Flush) 2 ml BID IV FLUSH 11/21/17 09:00 11/22/17 20:41 (NS Flush) 2 ml UNSCH PRN IV FLUSH 11/21/17 08:45 Sodium Chloride 1,000 ml @ 70 mls/hr [id number] IV 11/21/17 09:00 11/22/17 12:02 (Aspirin) 325 mg DAILY PO 11/22/17 09:00 11/22/17 08:37 (NovoLOG SUPPLEMENTAL SCALE) 1 ACHS SQ 11/21/17 12:00 (D50w (Vial) Inj) 50 ml UNSCH PRN IV PUSH 11/21/17 08:45 (Glucagon Inj) 1 mg UNSCH PRN OTHER 11/21/17 08:45 Allergies Allergies Coded Allergies bee venom protein (honey bee) (Verified Allergy, Unknown, 11/21/17) Exam I&O / VS Vital Signs Date Time Temp Pulse Resp B/P (MAP) Pulse Ox O2 Delivery O2 Flow Rate FiO2 11/22/17 17:09 69 11/22/17 16:20 97.9 75 16 126/76 (93) 95 11/22/17 12:00 98.4 67 18 119/71 (87) 95 11/22/17 08:00 98.3 66 20 134/66 (88) 11/22/17 08:00 66 11/22/17 05:56 Nasal Cannula 2.00 11/22/17 05:14 98.1 74 18 131/68 (89) 97 11/22/17 03:46 63 11/22/17 01:10 98.1 65 18 146/74 (98) 97 11/22/17 00:01 63 Exam Comments alert, speech is mildly nonfluent--improved CN intact MOTOR 5/5 BUE and BLE Objective Radiology Results MRI--acute cva right temporal lobe Micro and Labs Laboratory Tests Test 11/22/17 05:00 White Blood Count 11.0 Red Blood Count 4.16 Hemoglobin 13.8 Hematocrit 39.6 Mean Corpuscular Volume 95.0 Mean Corpuscular Hemoglobin 33.2 Mean Corpuscular Hemoglobin Concent 35.0 Red Cell Distribution Width 13.7 Platelet Count 252 Mean Platelet Volume 8.8 CBC Comment AUTO DIFF Differential Total Cells Counted 100 Neutrophils % (Manual) 39 Band Neutrophils % 3 Lymphocytes % 43 Monocytes % 5 Eosinophils % 6 Basophils % 4 Neutrophils # (Manual) 4.6 Differential Comment FINAL DIFF MANUAL Atypical Lymphocytes Smudge Cells PRESENT Platelet Estimate NORMAL Platelet Morphology Comment NORMAL Red Cell Morphology Comment NORMAL Blood Urea Nitrogen 9 Creatinine 0.89 Random Glucose 90 Calcium Level 8.5 Sodium Level 139 Potassium Level 3.6 Chloride Level 105 Carbon Dioxide Level 27.6 Anion Gap 6 Estimat Glomerular Filtration Rate 82 Triglycerides Level 156 Cholesterol Level 191 LDL Cholesterol 106 HDL Cholesterol 53.6 Cholesterol/HDL Ratio 3.56 Ryan Harmon MD PhD Nov 22, 2017 21:41
[2017-11-23] VITALS (11 sets, daily range): BP systolic 130–151; BP diastolic 82–89; PULSE 64–86; RESP 18–20; TEMP 97.4–99.6; O2SAT 93–96
[2017-11-23] MEDS ORDERED: GABAPENTIN 400 MG CAP PO ONE
[2017-11-23] MEDS: SODIUM CHLOR 0.9% 1000 ML INJ 1,000 ML IV SCH (05:39)
[2017-11-23] MEDS: INSULIN ASPART SUPPLEMENTAL SCALE SQ SCH ×4 (08:00→21:00)
[2017-11-23] MEDS: ASPIRIN 325 MG TAB PO SCH (08:46)
[2017-11-23] MEDS: SODIUM CHLORIDE 0.9% FLUSH 10 ML FLUSH IV FLUSH SCH ×2 (08:46→21:00)
[2017-11-23] MEDS: HEPARIN SODIUM - SQ 10,000 UNITS/ML VIAL SQ SCH ×2 (08:46→23:21)
[2017-11-23] MEDS: ATORVASTATIN 20 MG TAB PO SCH (08:46)
[2017-11-23] MEDS ORDERED: ASA325 PO (11:12)
--- NOTE | 2017-11-23 13:36 | ECHRPT ---
Indication: CVA/TIA CONCLUSIONS Normal left ventricular size. Wall thickness is normal. The left ventricular systolic function is moderately reduced with an estimated ejection fraction in the range of 45-50%. Mild aortic dilatation at the level of the sinuses of Valsalva. Trace aortic valve regurgitation. technically limited study BP: 162 / 86 HR: 57 Rhythm: MEASUREMENTS (Male / Female) Normal Values Technical Quality: 2D ECHO LV Diastolic Diameter PLAX 4.9 cm 4.2 - 5.9 / 3.9 - 5.3 cm LV Systolic Diameter PLAX 4.2 cm IVS Diastolic Thickness 1.2 cm 0.6 - 1.0 / 0.6 - 0.9 cm LVPW Diastolic Thickness 0.9 cm 0.6 - 1.0 / 0.6 - 0.9 cm LV Relative Wall Thickness 0.4 RV Internal Dim ED PLAX 2.7 cm LA Systolic Diameter LX 4.9 cm 3.0 - 4.0 / 2.7 - 3.8 cm DOPPLER AV Peak Velocity 239.0 cm/s AV Peak Gradient 22.8 mmHg Mitral E Point Velocity 77.5 cm/s Mitral A Point Velocity 111.0 cm/s Mitral E to A Ratio 0.7 TR Peak Velocity 229.7 cm/s TR Peak Gradient 21.1 mmHg FINDINGS LEFT VENTRICLE Normal left ventricular size. Wall thickness is normal. The left ventricular systolic function is moderately reduced with an estimated ejection fraction in the range of 40-45%. RIGHT VENTRICLE Normal right ventricular size and systolic function. LEFT ATRIUM The left atrial size is normal. RIGHT ATRIUM The right atrial size is normal. ATRIAL SEPTUM Normal atrial septal thickness without atrial level shunting by limited color doppler interrogation. AORTA Mild aortic dilatation at the level of the sinuses of Valsalva. MITRAL VALVE Structurally normal mitral valve. No mitral valve stenosis or regurgitation. AORTIC VALVE Trace aortic valve regurgitation. TRICUSPID VALVE Structurally normal tricuspid valve. No tricuspid valve stenosis or regurgitation. PULMONARY VALVE The pulmonary valve is not well visualized. VESSELS The inferior vena cava is normal in size. PERICARDIUM No pericardial effusion. Mark Ocampo MD, FACC, [facility] (Electronically Signed) Final Date:23 November 2017 13:35
--- NOTE | 2017-11-23 14:31 | HHI.PR ---
Subjective Remarks In the chair. No new motor or sensory deficits, speech improved. No headaches , change in vision. Had a normal bowel movement yesterday no nausea or vomiting no diarrhea. Objective Vitals Vital Signs Date Time Temp Pulse Resp B/P (MAP) Pulse Ox O2 Delivery O2 Flow Rate FiO2 11/23/17 12:09 93 Nasal Cannula 2.00 11/23/17 11:54 97.4 72 20 140/87 (104) 93 11/23/17 07:51 98.8 64 20 144/84 (104) 95 11/23/17 04:00 99.6 66 18 151/87 (108) 94 11/23/17 02:05 95 Nasal Cannula 2.00 11/23/17 00:36 86 11/23/17 00:00 99.4 64 20 150/87 (108) 95 11/22/17 20:00 99.4 73 20 144/80 (101) 94 11/22/17 17:09 69 11/22/17 16:20 97.9 75 16 126/76 (93) 95 I/O 11/22/17 11/22/17 11/22/17 11/23/17 11/23/17 11/23/17 07:00 15:00 23:00 07:00 15:00 23:00 Intake Total 1000 ml 1889 ml Output Total 1000 ml 200 ml 1 ml Balance 0 ml -200 ml 1888 ml IV Total 1000 ml 1889 ml Output Urine Total 1000 ml 200 ml Stool Total 1 ml # Voids 1 2 # Bowel Movements 1 1 Result Diagram: 11/22/17 0500 11/22/17 0500 Imaging Last Impressions Neck CTA 11/21/17602 Signed Impressions: Service Date/Time: Tuesday, November 21, 2017 06:07 - CONCLUSION: Bilateral calcific plaquing in the carotid bulbs right greater than left with approximate 50%% luminal narrowing on the right less than 30%% on the left. Paulie Garcia MD Head CTA 11/21/17602 Signed Impressions: Service Date/Time: Tuesday, November 21, 2017 06:07 - CONCLUSION: Unremarkable exam. Paulie Garcia MD Head Magnetic Resonance Angiography 11/21/17 0000 Signed Impressions: Service Date/Time: Tuesday, November 21, 2017 10:15 - CONCLUSION: 1. No evidence for significant hemodynamic flow limiting stenosis or large vessel occlusion. 2. Asymmetrical distal vertebral arteries with dominant right vertebral artery, as above. Matteo Silva MD Head CT 11/21/17 0000 Signed Impressions: Service Date/Time: Tuesday, November 21, 2017 06:07 - CONCLUSION: 1. Apparent old areas of infarction involving the right cerebellar hemisphere. 2. No acute hemorrhage or mass effect. Paulie Garcia MD Carotid Artery Ultrasound 11/21/17 0000 Signed Impressions: Service Date/Time: Tuesday, November 21, 2017 08:07 - CONCLUSION: 1. Left carotid: 2. No hemodynamically significant carotid artery stenosis identified. 3. 4. Right carotid: 5. There is elevation of the peak systolic velocity ratio however, the patient underwent CT angiography of the carotids 11/21/17 secondary to the CVA. This demonstrates only mild stenosis at the origin of the right internal carotid. This is estimated to be in the range of 20-30%% by NASCET criteria. There is a small amount of soft plaque present as well. Antonio Rhodes MD Brain MRI 11/21/17 0000 Signed Impressions: Service Date/Time: Tuesday, November 21, 2017 10:15 - CONCLUSION: 1. Acute nonhemorrhagic subcortical infarctions posterior left temporal lobe. 2. Old cortical infarction inferior right parasagittal occipital lobe. 3. Old segmental infarction inferior right cerebellar hemisphere. Sanchez Vo MD Objective Remarks GENERAL: This is a well-nourished, well-developed patient, in no apparent distress. SKIN: No rashes, ecchymoses or lesions. Cool and dry. HEAD: Atraumatic. Normocephalic. No temporal or scalp tenderness. EYES: Pupils equal round and reactive. Extraocular motions intact. No scleral icterus. No injection or drainage. ENT: Nose without bleeding, purulent drainage or septal hematoma. Throat without erythema, tonsillar hypertrophy or exudate. Uvula midline. Airway patent. NECK: Trachea midline. No JVD or lymphadenopathy. Supple, nontender, no meningeal signs. CARDIOVASCULAR: Regular rate and rhythm without murmurs, gallops, or rubs. RESPIRATORY: Clear to auscultation. Breath sounds equal bilaterally. No wheezes , rales, or rhonchi. GASTROINTESTINAL: Abdomen soft, non-tender, nondistended. No hepato-splenomegaly , or palpable masses. No guarding. MUSCULOSKELETAL: Extremities without clubbing, cyanosis, or edema. No joint tenderness, effusion, or edema noted. No calf tenderness. Negative Homans sign bilaterally. NEUROLOGICAL: Awake and alert. Cranial nerves II through XII intact. Motor and sensory grossly within normal limits. Five out of 5 muscle strength in all muscle groups. Unsteady gate. Slurred speech however improving. A/P Assessment and Plan 77 male with Acute stroke with expressive aphasia 2/2 acute nonhemorrhagic subcortical infarction posterior left temporal lobe CT revealed no hemorrhagic stroke. CTA neck reviewed reveals not significant bilateral carotid stenosis. MRI and MRA of the brain reviewed. Patient with acute nonhemorrhagic subcortical infarction posterior left temporal lobe. Also old cortical infarct inferior right parasagittal occipital lobe. An old segmental infarct inferior right cerebral hemisphere. Patient is not a candidate for IV TPA as he is beyond the window upon presentation Continue aspirin 325 mg Discontinue IV fluids. Neurochecks Oxygen supplement keep oxygen supplement oxygen saturation more than 94% Consult PT/OT/ST. Patient Consult neurology following appreciated recommendations Dr. 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 DVT prophylaxis SCDs//heparin subcu Discussed Condition With Patient, nurse PT recommends SNF Plan to discharge to SNF when improved and cleared by consultants. Case management consulted for discharge planning Diya Thakur MD Nov 23, 2017 14:31
--- NOTE | 2017-11-23 18:44 | HHI.PR ---
Review/Management Diagnosis add statin,continue asa monitor cardiac telemetry--r/o atrial fibrillation Diagnosis/Plan: Subjective Subjective Comments No acute events reported Active Medications Current Medications Medications (Trade) Dose Ordered Sig/Janay Route Start Time Stop Time Status Last Admin (Heparin Inj) 5,000 units Q12H SQ 11/21/17 08:00 11/23/17 08:46 (NS Flush) 2 ml BID IV FLUSH 11/21/17 09:00 11/23/17 08:46 (NS Flush) 2 ml UNSCH PRN IV FLUSH 11/21/17 08:45 (Aspirin) 325 mg DAILY PO 11/22/17 09:00 11/23/17 08:46 (NovoLOG SUPPLEMENTAL SCALE) 1 ACHS SQ 11/21/17 12:00 (D50w (Vial) Inj) 50 ml UNSCH PRN IV PUSH 11/21/17 08:45 (Glucagon Inj) 1 mg UNSCH PRN OTHER 11/21/17 08:45 (Lipitor) 20 mg DAILY PO 11/23/17 09:00 11/23/17 08:46 Allergies Allergies Coded Allergies bee venom protein (honey bee) (Verified Allergy, Unknown, 11/21/17) Exam I&O / VS 11/23/17 11/23/17 11/24/17 15:00 23:00 07:00 Intake Total 600 ml Balance 600 ml Intake Oral 600 ml Vital Signs Date Time Temp Pulse Resp B/P (MAP) Pulse Ox O2 Delivery O2 Flow Rate FiO2 11/23/17 17:43 96 Nasal Cannula 2.00 11/23/17 15:24 97.7 64 20 130/82 (98) 96 11/23/17 12:09 93 Nasal Cannula 2.00 11/23/17 11:54 97.4 72 20 140/87 (104) 93 11/23/17 07:51 98.8 64 20 144/84 (104) 95 11/23/17 04:00 99.6 66 18 151/87 (108) 94 11/23/17 02:05 95 Nasal Cannula 2.00 11/23/17 00:36 86 11/23/17 00:00 99.4 64 20 150/87 (108) 95 11/22/17 20:00 99.4 73 20 144/80 (101) 94 Exam Comments alert, speech is mildly nonfluent--improved CN intact MOTOR 5/5 Ryan Fowler MD PhD Nov 23, 2017 18:44
[2017-11-24] VITALS: BP 148/83; PULSE 68; RESP 18; TEMP 98.3; O2SAT 94
[2017-11-24 01:00] VITALS: PULSE 70
[2017-11-24 04:00] VITALS: BP 145/70; PULSE 66; RESP 18; TEMP 98.9; O2SAT 97
[2017-11-24] MEDS: INSULIN ASPART SUPPLEMENTAL SCALE SQ SCH (08:00)
[2017-11-24 08:14] VITALS: BP 130/79; PULSE 71; RESP 18; TEMP 98.8; O2SAT 96
[2017-11-24 08:15] VITALS: O2SAT 96
[2017-11-24] MEDS: SODIUM CHLORIDE 0.9% FLUSH 10 ML FLUSH IV FLUSH SCH (09:02)
[2017-11-24] MEDS: ATORVASTATIN 20 MG TAB PO SCH (09:02)
[2017-11-24] MEDS: ASPIRIN 325 MG TAB PO SCH (09:02)
[2017-11-24] MEDS: HEPARIN SODIUM - SQ 10,000 UNITS/ML VIAL SQ SCH (09:04)
--- NOTE | 2017-11-24 09:59 | HHI.DS ---
Discharge Summary Admission Date Nov 21, 2017 at 06:53 Discharge Date: Nov 24, 2017 Admitting Diagnosis Stroke alert (1) CVA (cerebral vascular accident) ICD Code: I63.9 - Cerebral infarction, unspecified Procedures No procedures Brief History - From Admission The patient is a 77 year old male who presents to the [facility] emergency department with a history of difficulty speaking that he first noticed at 1 AM. The patient reports that he lives at home alone. He reports that he felt uneasy throughout the entire night. He reports that he has been doing crosswords and attempting to speak to see if the symptoms will resolve. When they did not resolve he called ambulance services. The patient was brought in as a stroke alert. The patient arrives approximately 5 hours after the onset of symptoms. The patient reports that he has had a stroke in the past, one year ago. He reports that his symptoms completely resolved. He reports that he is on low-dose aspirin daily which he last took yesterday morning. He denies having any history of irregular heartbeat. On review of systems otherwise, the patient denies having any known recent fevers, cough, congestion , neck pain, chest pain, shortness of breath, abdominal pain, vomiting, diarrhea , urinary symptoms, one-sided weakness, vision changes, facial droop, or numbness or tingling to his extremities. The patient was brought in by ambulance services. The patient's blood sugar was noted to be 92 prior to arrival. The patient's pupils were reportedly unequal, however the patient reports having a history of this since childhood. CBC/BMP: 11/22/17 0500 11/22/17 0500 Significant Findings Laboratory Tests Test 11/22/17 05:00 Red Blood Count 4.16 MIL/MM3 (4.50-5.90) Eosinophils % 6 % (0-4) Basophils % 4 % (0-2) Estimat Glomerular Filtration Rate 82 ML/MIN (>89) Triglycerides Level 156 MG/DL (42-150) LDL Cholesterol 106 MG/DL (0-99) Imaging Last Impressions Neck CTA 11/21/17 06 Signed Impressions: Service Date/Time: Tuesday, November 21, 2017 06:07 - CONCLUSION: Bilateral calcific plaquing in the carotid bulbs right greater than left with approximate 50%% luminal narrowing on the right less than 30%% on the left. Paulie Garcia MD Head CTA 11/21/17 0603 Signed Impressions: Service Date/Time: Tuesday, November 21, 2017 06:07 - CONCLUSION: Unremarkable exam. Paulie Garcia MD Head Magnetic Resonance Angiography 11/21/17 0000 Signed Impressions: Service Date/Time: Tuesday, November 21, 2017 10:15 - CONCLUSION: 1. No evidence for significant hemodynamic flow limiting stenosis or large vessel occlusion. 2. Asymmetrical distal vertebral arteries with dominant right vertebral artery, as above. Matteo Silva MD Head CT 11/21/17 0000 Signed Impressions: Service Date/Time: Tuesday, November 21, 2017 06:07 - CONCLUSION: 1. Apparent old areas of infarction involving the right cerebellar hemisphere. 2. No acute hemorrhage or mass effect. Paulie Garcia MD Carotid Artery Ultrasound 11/21/17 0000 Signed Impressions: Service Date/Time: Tuesday, November 21, 2017 08:07 - CONCLUSION: 1. Left carotid: 2. No hemodynamically significant carotid artery stenosis identified. 3. 4. Right carotid: 5. There is elevation of the peak systolic velocity ratio however, the patient underwent CT angiography of the carotids 11/21/17 secondary to the CVA. This demonstrates only mild stenosis at the origin of the right internal carotid. This is estimated to be in the range of 20-30%% by NASCET criteria. There is a small amount of soft plaque present as well. Antonio Rhodes MD Brain MRI 11/21/17 0000 Signed Impressions: Service Date/Time: Tuesday, November 21, 2017 10:15 - CONCLUSION: 1. Acute nonhemorrhagic subcortical infarctions posterior left temporal lobe. 2. Old cortical infarction inferior right parasagittal occipital lobe. 3. Old segmental infarction inferior right cerebellar hemisphere. Sanchez Vo MD PE at Discharge GENERAL: This is a well-nourished, well-developed patient, in no apparent distress. SKIN: No rashes, ecchymoses or lesions. Cool and dry. HEAD: Atraumatic. Normocephalic. No temporal or scalp tenderness. EYES: Pupils equal round and reactive. Extraocular motions intact. No scleral icterus. No injection or drainage. ENT: Nose without bleeding, purulent drainage or septal hematoma. Throat without erythema, tonsillar hypertrophy or exudate. Uvula midline. Airway patent. NECK: Trachea midline. No JVD or lymphadenopathy. Supple, nontender, no meningeal signs. CARDIOVASCULAR: Regular rate and rhythm without murmurs, gallops, or rubs. RESPIRATORY: Clear to auscultation. Breath sounds equal bilaterally. No wheezes , rales, or rhonchi. GASTROINTESTINAL: Abdomen soft, non-tender, nondistended. No hepato-splenomegaly , or palpable masses. No guarding. MUSCULOSKELETAL: Extremities without clubbing, cyanosis, or edema. No joint tenderness, effusion, or edema noted. No calf tenderness. Negative Homans sign bilaterally. NEUROLOGICAL: Awake and alert. Cranial nerves II through XII intact. Motor and sensory grossly within normal limits. Five out of 5 muscle strength in all muscle groups. Unsteady gate. Slurred speech however improving. Pt update on day of discharge Is in the chair. No events overnight. No new motor or sensory deficit. No complaints at this time. Hospital Course 77 male with Acute stroke with expressive aphasia 2/2 acute nonhemorrhagic subcortical infarction posterior left temporal lobe CT revealed no hemorrhagic stroke. CTA neck reviewed reveals not significant bilateral carotid stenosis. MRI and MRA of the brain reviewed. Patient with acute nonhemorrhagic subcortical infarction posterior left temporal lobe. Also old cortical infarct inferior right parasagittal occipital lobe. An old segmental infarct inferior right cerebral hemisphere. Patient is not a candidate for IV TPA as he is beyond the window upon presentation Continue aspirin 325 mg Discontinue IV fluids. Neurochecks Oxygen supplement keep oxygen supplement oxygen saturation more than 94% Consult PT/OT/ST. Patient Consult neurology following appreciated recommendations Dr. 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 DVT prophylaxis SCDs//heparin subcu Discussed Condition With Patient, nurse PT recommends SNF Discharge to SNF in stable condition to follow-up with PCP and consultants as outpatient Pt Condition on Discharge: Stable Discharge Disposition: Discharge to SNF Discharge Time: > 30 minutes Discharge Instructions DIET: Follow Instructions for: Heart Healthy Diet, Diabetic Diet Speech Therapy-Diet Recommends: Regular Activities you can perform: Regular-No Restrictions Follow up Referrals: Neurology - 2 Weeks PCP Follow-up - 2-3 Days New Medications: Aspirin (Px Aspirin) 325 Mg Tab 325 MG PO DAILY for Blood Clot Prevention, #30 TAB Continued Medications: Buspirone (Buspirone) 5 Mg Tab 5 MG PO DAILY for Anxiety, TAB 0 Refills Gabapentin (Gabapentin) 800 Mg Tab 1600 MG PO HS, #90 TAB 0 Refills Sertraline (Zoloft) 50 Mg Tab 50 MG PO DAILY, #30 TAB 0 Refills Simvastatin (Simvastatin) 20 Mg Tab 20 MG PO DAILY for Cholesterol Management, #30 TAB 0 Refills Discontinued Medications: Aspirin (Aspirin) 81 Mg Chew 81 MG CHEW DAILY, TAB 0 Refills Lorazepam (Ativan) 0.5 Mg Tab 0.5 MG PO Q8H PRN for ANXIETY AND/OR AGITATION, TAB 0 Refills Diya Thakur MD Nov 24, 2017 09:59
[2017-11-24 12:47] VITALS: BP 135/82; PULSE 61; RESP 18; TEMP 97.4; O2SAT 97
--- NOTE | 2017-11-25 14:46 | HM ---
Date Performed: 11/23/2017 Time Performed: 21:07:00 HOOKUP DATE: 11/23/17 09:07:00 PM Wed ANALYSIS START TIME: 11/23/2017 9:12:00 PM ANALYSIS END TIME: 11/24/2017 1:35:24 PM PATIENT AGE: 77 PATIENT HEIGHT: 65 PATIENT WEIGHT: 254 DRUG LIST: room # 1514 d/c to home PATIENT DIAGNOSIS: STROKE ALERT TEST NARRATIVE: The patient's average heart rate was 69 BPM. No episodes of tachycardia wer e noted. No episodes of bradycardia were noted. No pauses exceeding 2.0 seconds were noted. 277 ventricular ectopics, which represented < 1% of the total beat count, were noted. The highest ve ntricular ectopic frequency occurred from 11:00 AM to 12:00 PM Bina. During this time 56 VE(s) occurr ed. Ventricular ectopics were observed as 277 isolated beat(s) only. No couplets or runs were noted . 214 supraventricular ectopics, which represented < 1% of the total beat count, were noted. The highest supraventricular ectopic frequency occurred from 11:00 AM to 12:00 PM Bina. During this time 61 SVE(s) occurred. No episodes of ST depression (defined as -1.0 mm or more) were noted in myers jo-ann 1. No episodes of ST depression (defined as -1.0 mm or more) were noted in channel 2. No episod es of ST depression (defined as -1.0 mm or more) were noted in channel 3. TEST INTERPRETATION: Patient undergoes holter monitor to assess for any underlying atrial fibril altion or flutter in the setting of a stroke alert. Basic rhythm is Sinus rhythm . Only the expanded tracings are subject to interpretation. Patient has occassional PACs and occassio nal PVCs. There are few rare and very brief episodes of nonsustained supraventricular tachycardia, bu t no atrial fibrillation or atrial flutter is noted. No complex ventricular ectopy is noted. No diary is provided. Conclusions: Relatively normal holter monitor with occassional PACs and PVCs with the rhythm being persistent sinus rhythm. Four brief episodes of nonsustained supraventricular tachycardi a lasting less than five beats are noted. No complex ventricular ectopy is noted. No significant tach yarrhythmias or bradyarrhythmias are noted. No symptoms are recorded in the diary, so it is presumed that the patient is asyptomatic. Signed by : Leanna Jane
== END 2017-11-24 13:39 | DRG 66 ==
LOC: NEPC 05:58 → NEDA 06:53 → NEPFCDU 10:56 → N05B 11-22 09:57
PROVIDERS: ADMIT Hospitalist; ATTEND Hospitalist
DX: I63.8 Other cerebral infarction (principal); R47.01 Aphasia; I10 Essential (primary) hypertension; I65.23 Occlusion and stenosis of bilateral carotid arteries; R29.701 NIHSS score 1; E78.5 Hyperlipidemia, unspecified; M19.90 Unspecified osteoarthritis, unspecified site; F32.9 Major depressive disorder, single episode, unspecified; F41.9 Anxiety disorder, unspecified; Z86.73 Personal history of transient ischemic attack (TIA), and cerebral infarction without residual deficits; Z87.891 Personal history of nicotine dependence; Z90.81 Acquired absence of spleen; Z91.030 Bee allergy status
CPT/HCPCS: 70450; 70496; 70498; 70544; 70551; 80048; 80061; 80307; 81001; 82550; 82552; 82948; 83036; 84484; 85007; 85025; 85027; 85384; 85610; 85730; 86077; 86850; 86870; 86900; 86901; 86920; 86922; 93005; 93225; 93226; 93306; 93880; 99291; J1644; J7030; P9612; Q9967